=== PATIENT | female | born 1945 | race Two or more races ===

== ENCOUNTER 2021-09-10 08:53 | Outpatient (CLI) | payer OTHER | END 2021-09-10 09:01 | disposition home or self-care (01) | LOC: TOM 08:53 | PROVIDERS: ATTEND Internal Medicine Gastroenterology | DX: R19.5 Other fecal abnormalities (principal); K59.00 Constipation, unspecified; R19.7 Diarrhea, unspecified; K57.90 Diverticulosis of intestine, part unspecified, without perforation or abscess without bleeding ==

== ENCOUNTER 2021-11-19 07:58 | Day surgery (SDC) | payer OTHER | END 2021-11-19 14:45 | disposition home or self-care (01) | LOC: AMB-ENDOS 07:58 | PROVIDERS: ATTEND Surgery | DX: K64.8 Other hemorrhoids (principal); K57.30 Diverticulosis of large intestine without perforation or abscess without bleeding ==

== ENCOUNTER 2022-12-26 09:41 | Outpatient (CLI) | payer OTHER | END 2022-12-26 09:43 | disposition home or self-care (01) | LOC: SONOGRAMA 09:41 | PROVIDERS: ATTEND Pathology Anatomic Pathology & Clinical Pathology | DX: D34 Benign neoplasm of thyroid gland (principal); E07.9 Disorder of thyroid, unspecified; E04.1 Nontoxic single thyroid nodule; E04.9 Nontoxic goiter, unspecified ==

== ENCOUNTER 2024-05-27 13:06 | Outpatient (CLI) | payer OTHER | END 2024-05-27 13:08 | disposition home or self-care (01) | LOC: SONOGRAMA 13:06 | DX: E03.8 Other specified hypothyroidism (principal) ==

== ENCOUNTER 2024-11-07 09:08 | Outpatient (CLI) | payer OTHER | END 2024-11-07 09:16 | disposition home or self-care (01) | LOC: SONOGRAMA 09:08 | DX: E21.1 Secondary hyperparathyroidism, not elsewhere classified (principal); E04.1 Nontoxic single thyroid nodule ==

== ENCOUNTER 2024-11-07 10:06 | Outpatient (CLI) | payer OTHER | END 2024-11-07 10:07 | disposition home or self-care (01) | LOC: NUCLEAR 10:06 | DX: E21.1 Secondary hyperparathyroidism, not elsewhere classified (principal); M81.0 Age-related osteoporosis without current pathological fracture ==